=== PATIENT | female | born 1955 | race African-American/Black ===

== ENCOUNTER → 2016-10-27 | Outpatient (CLI) | payer BC ==
[~2016-10-27] MED LIST: ACETAMINOPHEN PO; ACETAMINOPHEN325 MG PO; AMOXICILLIN875 MG PO; ASPIRIN325 M1 PO; AUGMENTIN PO; BENICAR PO; BENICAR5 MG PO; CARVEDILOL3.125 MG PO; COMBIVENT INH14.7 GM INH; CORDARONE200 M1 PO; COREG3.125 MG PO; FLEXERIL PO; FLEXERIL10 MG PO; IMDUR-ER30 MG PO; IMDUR30 MG PO; LABETALOL HCL200 MG PO; LASIX PO; MINOCYCLINE HCL50 MG PO; NEXIUM PO; PHENTERMINE PO; PLAVIX PO; SIMVASTATIN40 MG PO; SOD BICARBONATE PO; SODIUM BICARBO650 MG PO; ZOCOR PO
[2016-10-27 10:53] LABS: CALCIUM SERUM 9.1 mg/dL (8.4-10.2); CREATININE SERUM 1.5 mg/dL (0.6-1.4); GLOM FILT RATE Estimated 42.5 mL/min (>60); POTASSIUM 4.2 mmol/L (3.5-5.1)
== END | disposition home or self-care (01) ==
LOC: SLABONLY 09:30
PROVIDERS: Internal Medicine Cardiovascular Disease
DX: I25.5 Ischemic cardiomyopathy (principal)
CPT/HCPCS: 36415; 80048